=== PATIENT | male | born 1970 | race Caucasian/White ===

== ENCOUNTER → 2017-11-02 | Outpatient (CLI) | payer OTHER ==
[~2017-11-02] MED LIST: CIPROFLOXACIN500 M1 PO; MULTIVITAMINS; NORCO 5-325 TA1 EACH PO; PROTONIX40 MG PO; ZOFRAN ODT4 MG PO; ZPAK PO
== END ==
LOC: M.RAD 10:47
DX: J06.9 Acute upper respiratory infection, unspecified (principal)

== ENCOUNTER → 2018-03-01 | Outpatient (CLI) | payer OTHER | LOC: M.RAD 13:45 | DX: M47.896 Other spondylosis, lumbar region (principal); M54.6 Pain in thoracic spine; Z91.81 History of falling ==

== ENCOUNTER 2020-01-28 06:55 | Emergency (ER) | payer OTHER ==
[~2020-01-28] VITALS: Ht 188 cm; Wt 124.7 kg
[2020-01-28] MEDS ORDERED: IBS MEDICATION (07:09)
[2020-01-28 07:41] LABS: CREATININE 0.9 mg/dL (0.6-1.3); POTASSIUM 4.2 mmol/L (3.5-5.1)
[2020-01-28 09:36] VITALS: BP 146/81
== END 2020-01-28 09:37 | disposition home or self-care (01) ==
LOC: M.ERS 06:55
PROVIDERS: Emergency Medicine Emergency Medical Services
DX: M79.661 Pain in right lower leg (principal); K58.9 Irritable bowel syndrome, unspecified; Z87.442 Personal history of urinary calculi; Z87.01 Personal history of pneumonia (recurrent)

== ENCOUNTER → 2020-12-26 | Outpatient (CLI) | payer OTHER ==
[~2020-12-26] MED LIST changes: +IBS MEDICATION
== END ==
LOC: M.ULTRA 14:47
PROVIDERS: ATTEND Internal Medicine
DX: R74.8 Abnormal levels of other serum enzymes (principal)

== ENCOUNTER → 2021-05-01 | Outpatient (CLI) | payer OTHER ==
[2021-05-01 15:42] LABS: ABSOLUTE BASOPHILS 0.1 thou/uL (0.0-0.2); ABSOLUTE EOSINOPHILS 0.1 thou/uL (0.0-0.7); ABSOLUTE LYMPHOCYTES 1.3 thou/uL (0.8-5.3); ABSOLUTE MONOCYTES 0.4 thou/uL (0.0-1.2); ABSOLUTE NEUTROPHILS 6.9 thou/uL (1.6-8.1); BASOPHILS 1.3 %; EOSINOPHILS 0.9 %; HEMOGLOBIN 15.7 gm/dL (14.0-18.0); MCH 29.7 pg (26.0-34.0); MCHC 34.9 g/dL (28.0-37.0); MCV 85.1 fL (80.0-100.0); MONOCYTES 4.9 %; MPV 7.7 fl. (7.2-11.1); NUCLEATED RBCS 0 /100WBC; PLATELET COUNT* 325 thou/uL (150-400); POLYS 77.9 %; RBC 5.29 mil/uL (4.50-6.00); RDW-CV 13.1 % (10.5-14.5); WBC 8.9 thou/uL (4.0-11.0)
[2021-05-01 16:05] LABS: ALBUMIN 3.9 g/dL (3.4-5.0); ALKALINE PHOSPHATASE 149 U/L (46-116); ANION GAP 8 mmol/L (7-16); BUN 13 mg/dL (7-18); CALCIUM 8.9 mg/dL (8.5-10.1); CHLORIDE 101 mmol/L (98-107); CO2 30 mmol/L (21-32); CREATININE 0.8 mg/dL (0.6-1.3); GLUCOSE 116 mg/dL (70-99); POTASSIUM 4.1 mmol/L (3.5-5.1); SGOT 34 U/L (15-37); SGPT 74 U/L (30-65); SODIUM 139 mmol/L (136-145); TOTAL BILIRUBIN 0.4 mg/dL (<0.1-1.0); TOTAL PROTEIN 8.4 g/dL (6.4-8.2); TROPONIN-I LEVEL <0.06 ng/mL (<0.06)
== END ==
LOC: M.LAB 15:23
PROVIDERS: ATTEND Internal Medicine
DX: J98.4 Other disorders of lung (principal); Z90.49 Acquired absence of other specified parts of digestive tract